=== PATIENT | male | born 1970 | race Caucasian/White ===

== ENCOUNTER 2024-09-25 11:40 | Observation (INO) ==
[2024-09-25] MEDS: NOZIN NASAL SANITIZER TP ONE (08:12)
[2024-09-25] MEDS: NS 1,000 ML IV 1,000 ML ONE (08:14)
[2024-09-25] MEDS: FENTANYL VIAL INJ 100 mcg ONE (09:10)
[2024-09-25] MEDS: VERSED ONE (09:10)
[2024-09-25] MEDS: BETADINE SOLN ONE (09:11)
[2024-09-25] MEDS: REGLAN INJ 10 MG VIAL ONE (09:12)
[2024-09-25] MEDS: DIPRIVAN VIAL 20 ML ONE (09:12)
[2024-09-25] MEDS: PRECEDEX INJ VIAL ONE (09:12)
[2024-09-25] MEDS: ZOFRAN INJ 4 MG VIAL ONE (09:12)
[2024-09-25] MEDS: PEPCID 20 MG VIAL ONE (09:12)
[2024-09-25 09:13] VITALS: BMI 33.0
[2024-09-25] MEDS: XYLOCAINE 2 % (PLAIN) ONE (09:13)
[2024-09-25] MEDS: BRIDION ONE (09:15)
[2024-09-25] MEDS: ZEMURON 100 MG VIAL ONE (09:17)
[2024-09-25] MEDS: NS 1,000 ML IV 800 ML IV PRN (10:05)
[2024-09-25] MEDS: VERSED IVP PRN (10:06)
[2024-09-25] MEDS: ZOFRAN INJ 4 MG VIAL IVP PRN (10:07)
[2024-09-25] MEDS: PEPCID 20 MG VIAL IVP PRN (10:08)
[2024-09-25] MEDS: REGLAN INJ 10 MG VIAL IVP PRN (10:10)
[2024-09-25] MEDS: ANCEF VIAL 1 GRAM ONE (10:14)
[2024-09-25] MEDS: NS 100 ML IV 100 ML ONE (10:14)
[2024-09-25] MEDS: ANCEF VIAL 1 GRAM IV PRN (10:20)
[2024-09-25] MEDS: ROBINUL IVP PRN (10:24)
[2024-09-25] MEDS: ZEMURON 100 MG VIAL IVP PRN (10:29)
[2024-09-25] MEDS: FENTANYL VIAL INJ 100 mcg IVP PRN (10:29)
[2024-09-25] MEDS: MARCAINE 0.25% INJ ONE (10:44)
[2024-09-25] MEDS: NEO-SYNEPHRINE INJ ONE (10:50)
[2024-09-25] MEDS: DIPRIVAN VIAL 200 ML IVP PRN (11:22)
[2024-09-25] MEDS: KETAMINE HCL IV PRN (11:25)
[2024-09-25] MEDS: OFIRMEV IV 1000 MG VIAL 1,000 MG/100 ML VIAL IV ONE (11:34)
[2024-09-25] MEDS: OFIRMEV IV 1000 MG VIAL 1,000 MG/100 ML VIAL IV PRN (11:35)
[2024-09-25] MEDS: DECADRON INJ ONE (11:36)
[2024-09-25] MEDS: DECADRON INJ IVP PRN (11:38)
[~2024-09-25 11:40] MED LIST: BARHEMSYS INJ IVP PRN; BENADRYL INJ 50 MG VIAL IVP PRN; DILAUDID INJ IVP PRN; KETAMINE HCL ONE; REGLAN INJ 10 MG VIAL IVP PRN; ULTANE GAS IN ONE; ZOFRAN INJ 4 MG VIAL IVP PRN
[2024-09-25] MEDS: NEO-SYNEPHRINE INJ IVP PRN (11:51)
[2024-09-25] MEDS: PRECEDEX INJ VIAL IVP PRN (12:09)
[2024-09-25] MEDS: BRIDION IVP PRN (12:11)
[2024-09-25] MEDS ORDERED: PERCOCET TAB 5/325 MG PO PRN (12:23)
[2024-09-25] MEDS ORDERED: ZOFRAN INJ 4 MG VIAL IVP PRN (12:23)
[2024-09-25] MEDS: NS 1,000 ML IV 1,000 ML IV SCH (13:36)
[2024-09-25] MEDS: TYLENOL 325 MG TAB PO PRN (19:49)
[2024-09-25] MEDS: COLACE CAP 100 MG PO SCH (22:11)
[2024-09-25] MEDS: NovoLIN R (or HumuLIN R) SUBCUT PRN (22:46)
[2024-09-26 06:25] LABS: BLOOD UREA NITROGEN 32 mg/dL (7-18); CARBON DIOXIDE 25.5 mmol/L (21-32); CHLORIDE 106 mmol/L (98-107); COR NA(FOR HYPERGLY) 142 mmol/L (136-145); CREATININE 1.25 mg/dL (0.70-1.30); GLUCOSE 190 mg/dL (65-99); POTASSIUM 4.7 mmol/L (3.5-5.1); SODIUM 140 mmol/L (136-145); eGFR NON BLACK RACES > 60 (>60)
[2024-09-26 07:21] VITALS: O2SAT 98
[2024-09-26] MEDS: SNACK - Diabetic Appropriate PO SCH (07:35)
--- NOTE | 2024-09-26 07:45 | NOTE.SOAP ---
Soap Note Note for Day of Date of Exam: 09/26/24 Subjective Data Subjective Data: Patient is POD#1 from achilles tenotomy, midfoot osteotomy, and application of external fixator for charcot of his right lower extremity. He denies any nausea, vomiting, fevers, chills, shortness of breath or chest pain, denies any perfuse sweating. No calf or thigh pain. Objective Data Objective Data: Right Lower Extremity Exam: Fixator is in place to right leg. Pins and wires not loose. Dressing is saturated. Dressing taken down and changed with sterile 4x4s and Juanita. No hematoma noted. No signs or symptoms concerning for PE or DVT. Assessment Assessment: POD#1 from achilles tenotomy, midfoot osteotomy, and application of external fixator for charcot of his right lower extremity Plan Plan: - NWB to RLE - Rx for Pain medication in chart. - Rx for Zofran in chart. - Rx for Bedside commode in chart. - Does not need Lovenox, can restart his Xeralto and Plavix today. - Dressing to stay intact until follow-up appointment. - Crutches to be dispensed at discharged. - Okay for discharge once seen by Primary Care.
[2024-09-26 07:51] VITALS: BP 167/79; PULSE 64; RESP 21; TEMP 98.4
[2024-09-26] MEDS ORDERED: XARELTO PO SCH ×2 (09:30→21:00)
[2024-09-26] MEDS ORDERED: [UNRECOGNIZED DRUG - OTHER] SUBCUT SCH (09:30)
[2024-09-26] MEDS: COZAAR PO SCH (09:59)
[2024-09-26] MEDS: FARXIGA PO SCH (09:59)
[2024-09-26] MEDS: CRESTOR TAB 10 MG PO SCH (09:59)
[2024-09-26] MEDS: NEURONTIN CAP 100 MG PO SCH (10:00)
[2024-09-26] MEDS: TOPROL XL PO SCH (10:00)
[2024-09-26] MEDS: LOVENOX INJ 40 MG SYR SC SCH (10:00)
[2024-09-26] MEDS ORDERED: GLUCOPHAGE PO SCH (17:00)
[2024-09-27] MEDS ORDERED: PLAVIX PO SCH (09:00)
== END 2024-09-26 11:47 | disposition home or self-care (01) ==
LOC: MED/SURG
PROVIDERS: ADMIT Obstetrics & Gynecology Obstetrics; ATTEND Obstetrics & Gynecology Obstetrics
PROC: APEXFIX (2024-09-25 12:00)
DX: E11.65 Type 2 diabetes mellitus with hyperglycemia; G89.18 Other acute postprocedural pain; S93.334A Other dislocation of right foot, initial encounter; M24.571 Contracture, right ankle; M21.6X1 Other acquired deformities of right foot; E11.41 Type 2 diabetes mellitus with diabetic mononeuropathy; M14.671 Charcot's joint, right ankle and foot

== ENCOUNTER 2024-10-25 07:30 | Observation (INO) ==
[2024-10-25] MEDS ORDERED: KETAMINE HCL ONE (09:29)
[2024-10-25] MEDS ORDERED: NEO-SYNEPHRINE INJ ONE (09:29)
[2024-10-25] MEDS ORDERED: SUPRANE IN ONE (09:29)
[2024-10-25] MEDS ORDERED: XYLOCAINE 2 % (PLAIN) ONE (09:29)
[2024-10-25] MEDS: NOZIN NASAL SANITIZER TP ONE (10:37)
[2024-10-25] MEDS: NS 1,000 ML IV 1,000 ML ONE (10:38)
[2024-10-25 11:48] VITALS: BMI 32.8
[2024-10-25] MEDS: PEPCID 20 MG VIAL IVP PRN (12:58)
[2024-10-25] MEDS: REGLAN INJ 10 MG VIAL IVP PRN (12:58)
[2024-10-25] MEDS: ZOFRAN INJ 4 MG VIAL IVP PRN (12:59)
[2024-10-25] MEDS: VERSED IVP PRN (12:59)
[2024-10-25] MEDS: NS IV PRN (13:00)
[2024-10-25] MEDS: NS 100 ML IV 100 ML ONE (13:03)
[2024-10-25] MEDS: ANCEF VIAL 1 GRAM ONE (13:03)
[2024-10-25] MEDS: DIPRIVAN VIAL 20 ML ONE (13:21)
[2024-10-25] MEDS: VERSED ONE (13:21)
[2024-10-25] MEDS: ZEMURON 100 MG VIAL ONE (13:21)
[2024-10-25] MEDS: ZOFRAN INJ 4 MG VIAL ONE (13:21)
[2024-10-25] MEDS: FENTANYL VIAL INJ 100 mcg ONE (13:21)
[2024-10-25] MEDS: BRIDION ONE (13:21)
[2024-10-25] MEDS: REGLAN INJ 10 MG VIAL ONE (13:21)
[2024-10-25] MEDS: PEPCID 20 MG VIAL ONE (13:21)
[2024-10-25] MEDS: ANCEF VIAL 1 GRAM IV PRN (13:22)
[2024-10-25] MEDS ORDERED: ZOFRAN INJ 4 MG VIAL IVP PRN ×2 (13:25→14:36)
[2024-10-25] MEDS: ZEMURON 100 MG VIAL IVP PRN (13:27)
[2024-10-25] MEDS: XYLOCAINE 2 % (PLAIN) INJ PRN (13:27)
[2024-10-25] MEDS: KETAMINE HCL IV PRN (13:27)
[2024-10-25] MEDS: FENTANYL VIAL INJ 100 mcg IVP PRN (13:27)
[2024-10-25] MEDS: BETADINE SOLN ONE (13:30)
[2024-10-25] MEDS: MARCAINE 0.25% INJ ONE (13:33)
[2024-10-25] MEDS: TORADOL 30 MG VIAL ONE (13:42)
[2024-10-25] MEDS: NS 1,000 ML IV 1,000 ML IV SCH (14:00)
[2024-10-25] MEDS ORDERED: NS 1,000 ML IV 1,000 ML ONE (14:20)
[2024-10-25] MEDS ORDERED: OFIRMEV IV 1000 MG VIAL 1,000 MG/100 ML VIAL IV ONE (14:21)
[2024-10-25] MEDS: OFIRMEV IV 1000 MG VIAL 1,000 MG/100 ML VIAL IV PRN (14:25)
[2024-10-25] MEDS: TORADOL 30 MG VIAL IVP PRN (14:34)
[2024-10-25] MEDS ORDERED: DILAUDID INJ IVP PRN (14:36)
[2024-10-25] MEDS ORDERED: BARHEMSYS INJ IVP PRN (14:36)
[2024-10-25] MEDS ORDERED: BENADRYL INJ 50 MG VIAL IVP PRN (14:36)
[2024-10-25] MEDS ORDERED: DILAUDID INJ ONE (14:53)
[2024-10-25] MEDS: DILAUDID INJ IVP PRN (14:55)
[2024-10-25] MEDS: DIPRIVAN VIAL 180 ML IVP PRN (14:57)
[2024-10-25] MEDS: NEO-SYNEPHRINE INJ IVP PRN (15:01)
[2024-10-25] MEDS ORDERED: HYDROGEN PEROXIDE 3% ONE (15:26)
[2024-10-25] MEDS: BRIDION IVP PRN (15:44)
[2024-10-25] MEDS: COLACE CAP 100 MG PO SCH (20:57)
[2024-10-25] MEDS: NovoLIN R (or HumuLIN R) SUBCUT PRN ×2 (21:32)
[2024-10-25] MEDS ORDERED: TYLENOL 325 MG TAB PO PRN (22:00)
[2024-10-25] MEDS: LOPRESSOR TAB 50 MG PO SCH (22:06)
[2024-10-25] MEDS: COZAAR PO SCH (22:06)
[2024-10-25] MEDS: TYLENOL 325 MG TAB PO PRN (22:06)
[2024-10-26] MEDS: SNACK - Diabetic Appropriate PO SCH (03:39)
[2024-10-26 04:23] VITALS: RESP 18
[2024-10-26 07:16] LABS: CARBON DIOXIDE 28.7 mmol/L (21-32); CREATININE 1.74 mg/dL (0.70-1.30); POTASSIUM 4.2 mmol/L (3.5-5.1)
[2024-10-26 08:18] VITALS: BP 122/73; TEMP 98.4; O2SAT 99
--- NOTE | 2024-10-26 09:15 | NOTE.SOAP ---
Soap Note Note for Day of Date of Exam: 10/26/24 Subjective Data Subjective Data: POD#1 medial column fusion, multiple midfoot fusion, STJ and CCJ fusion with hammertoe repair digits 3-5. No complaints. Denies N/V/F/C/SoB. No chest pain. No diaphoresis. No calf pain or thigh pain. Objective Data Objective Data: Right Lower Extremity Exam: Dressing taken down. Surgical incisions healing well. No hematoma noted underneath the incisions. Redressed with sterile 4x4s, ABD, Webroll, back into splint and FIDELIA. No signs or symptoms concerning for DVT or PE. Assessment Assessment: POD#1 medial column fusion, multiple midfoot fusion, STJ and CCJ fusion with hammertoe repair digits 3-5, right Plan Plan: - NWB to RLE - Rx in chart for pain medication and zofran. - Can restart Xeralto and Plavix today. - Okay for discharge.
[2024-10-26] MEDS: XARELTO PO SCH (09:22)
[2024-10-26] MEDS: PLAVIX PO SCH (09:22)
[2024-10-26] MEDS: PriLOSEC PO SCH (09:22)
[2024-10-26] MEDS: NEURONTIN CAP 100 MG PO SCH (09:23)
[2024-10-26] MEDS: HYDROCHLOROTHIAZIDE 25 MG TAB PO SCH (09:23)
[2024-10-26 09:38] VITALS: PULSE 74
[2024-10-26] MEDS: PERCOCET TAB 5/325 MG PO PRN (10:33)
[2024-10-26] MEDS ORDERED: CRESTOR TAB 10 MG PO SCH (21:00)
== END 2024-10-26 10:45 | disposition home or self-care (01) ==
LOC: OBS → MED/SURG 16:26
PROVIDERS: ADMIT Obstetrics & Gynecology Obstetrics; ATTEND Obstetrics & Gynecology Obstetrics
DX: G89.18 Other acute postprocedural pain; M21.6X1 Other acquired deformities of right foot; M14.671 Charcot's joint, right ankle and foot; E11.42 Type 2 diabetes mellitus with diabetic polyneuropathy; I10 Essential (primary) hypertension; M19.071 Primary osteoarthritis, right ankle and foot; M20.41 Other hammer toe(s) (acquired), right foot

== ENCOUNTER 2024-11-12 17:50 | Inpatient (IN) ==
[2024-11-12 18:07] VITALS: BMI 32.7
[2024-11-12 20:06] LABS: BASOPHILS # (AUTO) 0.1 X10^3/uL (0.0-0.1); BASOPHILS % (AUTO) 0.5 % (0.2-1.0); EOSINOPHILS # (AUTO) 0.3 x10^3/uL (0.0-0.2); EOSINOPHILS % (AUTO) 2.1 % (0.9-2.9); HEMATOCRIT 39.1 % (42.0-54.0); HEMOGLOBIN 13.3 g/dL (13.5-18.0); LYMPHOCYTES # (AUTO) 1.4 X10^3/uL (1.3-2.9); LYMPHOCYTES % (AUTO) 9.2 % (21.0-51.0); MEAN CORPUSCULAR HEMOGLOBIN 31.3 pg (27.0-34.0); MEAN CORPUSCULAR HGB CONC 34.1 g/dL (33.0-35.0); MEAN CORPUSCULAR VOLUME 91.8 fL (80.0-100.0); MEAN PLATELET VOLUME 6.7 fL (7.4-11.0); MONOCYTES % (AUTO) 6.3 % (0.0-13.0); NEUTROPHILS # (AUTO) 12.9 x10^3/uL (2.2-4.8); NEUTROPHILS % (AUTO) 81.9 % (42.0-75.0); PLATELET COUNT 659 X10^3/uL (150.0-450.0); RED BLOOD COUNT 4.25 X10^6/uL (4.7-6.0); RED CELL DISTRIBUTION WIDTH 13.2 % (11.6-16.5); WHITE BLOOD COUNT 15.8 X10^3/uL (3.6-10.0)
[2024-11-12 20:12] LABS: CALCIUM 9.5 mg/dL (8.5-10.1); CARBON DIOXIDE 30.8 mmol/L (21-32); CREATININE 2.06 mg/dL (0.70-1.30); POTASSIUM 4.9 mmol/L (3.5-5.1)
[2024-11-12] MEDS ORDERED: PRECEDEX INJ VIAL ONE (20:30)
[2024-11-12] MEDS ORDERED: XYLOCAINE 2 % (PLAIN) ONE (20:30)
[2024-11-12] MEDS ORDERED: KETAMINE HCL ONE (20:30)
--- NOTE | 2024-11-12 20:36 | DR.EXTPAIN ---
HPI Time seen Time Seen by Provider: 11/12/24 19:18 PCP Primary Care Physician: Fordam Complaint/Symptoms Chief Complaint Doctor Comments: 54 yo M, hx Charcot Foot, had surgery 3 wk ago to repair foot, c/o increasing pain/redness/swelling to surgical area, worst on posterior foot / heel of foot. Denies fever. Pt sent here by Dr Stevens for admission and to prep for surgery in the am. Chief Complaint:: Infection of surgical site, was sent here by Dr. Stevens to have debridement of wound site. Self Treatment fo Chief Complaint: Dr. Da Silva with on monday then Dr. Hilda da silva today Source History Provided: Patient and Significant Other Mode of arrival Mode of Arrival: Wheelchair Timing Onset of Chief Complaint: 11/08/24 PMH PMH Past Medical History: Yes Past Medical History: Diabetes, GERD and Hypertension Past Medical History Comment: DVT, PTSD Past Surgical History: Yes Surgical History: Ortho Surgery Past Surgical History Comment: Tripple bipass, eye surgery, laser eye surgery Family History History of Family Medical Conditions: Yes Family Medical History: Diabetes Mellitus, Cancer, Heart Failure and Hypertension Social History Does patient currently use any type of tobacco product: No Have you used tobacco products in the last 12 months: No Does any household member use tobacco: No Do you use any recreational Drugs:: No Lives With: Spouse Lives Where: Home Infectious screening In the last 2 months have you had wt loss of >10#?: NO Have you had fever, night sweats or hemotysis?: No Have you traveled outside the country in the last 6 months?: No Isolation: Standard ROS Review of Systems Musculoskeletal: Other (R foot infection/pain/redness/swelling) All Other Systems: Reviewed and Negative PE Vital Signs Vitals: Vital Signs Temperature 98.0 F Pulse Rate 87 Respiratory Rate 20 Blood Pressure 93/56 O2 Sat by Pulse Oximetry 93 General Limitations: No Limitations General Appearance: Alert and In No Apparent Distress Head Head Exam: Normal Inspection Eyes Eye exam: Normal Appearance ENT ENT Exam: Normal Exam Neck Neck Exam: Normal Inspection Chest Chest Inspection: Normal Inspection Respiratory Respiratory Exam: Normal Lung Sounds Bilat Cardiovascular Cardiovascular Exam: Regular Rate and Normal Rhythm Lower Extremities Foot/Toe Exam: Other (erythema & swelling of posterior foot, open wound overlying posterior portion of calcaneous. Wound appears infected with assoc cellulitis surrounding wound site.) Back Back Exam: Normal Inspection Neurological Neurological Exam: Alert, Oriented X3 and CN II-XII Intact Psychiatric Psychiatric Exam: Normal Affect and Normal Mood Skin Skin Exam: Warm, Dry, Intact and Normal Color ROR Labs Reviewed 11/12/24 19:11/12/24 19: Laboratory: WBC 15.8 X10^3/uL (3.6-10.0) H 11/12/24 19: RBC 4.25 X10^6/uL (4.7-6.0) L 11/12/24 19: Hgb 13.3 g/dL (13.5-18.0) L 11/12/24: Hct 39.1 % (42.0-54.0) L 11/12/24: MCV 91.8 fL (80.0-100.0) 11/12/24: MCH 31.3 pg (27.0-34.0) 11/12/24: MCHC 34.1 g/dL (33.0-35.0) 11/12/24: RDW 13.2 % (11.6-16.5) 11/12/24: Plt Count 659 X10^3/uL (150.0-450.0) H 11/12/24: MPV 6.7 fL (7.4-11.0) L 11/12/24: Neut % (Auto) 81.9 % (42.0-75.0) H 11/12/24: Lymph % (Auto) 9.2 % (21.0-51.0) L 11/12/24: [place] % (Auto) 6.3 % (0.0-13.0) 11/12/24: Eos % (Auto) 2.1 % (0.9-2.9) 11/12/24: Baso % (Auto) 0.5 % (0.2-1.0) 11/12/24: Neut # (Auto) 12.9 x10^3/uL (2.2-4.8) H 11/12/24: Lymph # (Auto) 1.4 X10^3/uL (1.3-2.9) 11/12/24 19:31 [place] # (Auto) 1.0 x10^3/uL (0.3-0.8) H 11/12/24 19:31 Eos # (Auto) 0.3 x10^3/uL (0.0-0.2) H 11/12/24 19:31 Baso # (Auto) 0.1 X10^3/uL (0.0-0.1) 11/12/24 19:31 Absolute Nucleated RBC 0.1 /100WBC 11/12/24 19:31 Sodium 134 mmol/L (136-145) L 11/12/24 19:31 Corrected Sodium 136 mmol/L (136-145) 11/12/24 19:31 Potassium 4.9 mmol/L (3.5-5.1) 11/12/24 19:31 Chloride 98 mmol/L (98-107) 11/12/24 19:31 Carbon Dioxide 30.8 mmol/L (21-32) 11/12/24 19:31 BUN 27 mg/dL (7-18) H 11/12/24 19:31 Creatinine 2.06 mg/dL (0.70-1.30) H 11/12/24 19:31 Est GFR (MDRD) Af Amer 43 (>60) L 11/12/24 19:31 Est GFR (MDRD) Non-Af 36 (>60) L 11/12/24 19:31 Glucose 179 mg/dL (65-99) H 11/12/24 19:31 Calcium 9.5 mg/dL (8.5-10.1) 11/12/24 19:31 Opioid Opioid Risk Tool Age (John box if 16-45): No History of Preadolescent Sexual Abuse: No Total: 0 Total Score Risk Category: Low Risk Copyright: Nahum HUGHES predicting aberrant behaviors Discharge Plan Diagnosis Discharge Problem: Infection of right foot Discharge Plan Patient Disposition: 09 ADMITTED INPATIENT Condition: Stable Prescriptions: No Action Novolin R Regular U100 Insulin 100 unit/mL Solution hydrochlorothiazide 25 mg tablet 25 mg PO QDAY omeprazole 20 mg Capsule,Delayed Release(Dr/Ec) 20 mg PO DAILY losartan 50 mg tablet 50 mg PO BID metoprolol succinate 50 mg tablet extended release 24 hr 50 mg PO BID clopidogrel 75 mg tablet 75 mg PO QDAY clopidogrel 75 mg tablet 75 mg PO DAILY metformin 1,000 mg tablet 1,000 mg PO BID gabapentin 100 mg capsule 100 mg PO BID rosuvastatin 20 mg tablet 10 mg PO DAILY Jardiance 10 mg tablet 10 mg PO QDAY rivaroxaban [Xarelto] 2.5 mg tablet 2.5 mg PO BID Patient Comments: [NO ORIGINAL SIG] (DME) Dexcom G7 Sensor Device MISCELLANEOUS Q10D (DME) Omnipod 5 G6-G7 Pods (Gen 5) Cartridge SUBCUT Q3D clopidogrel 75 mg tablet 75 mg PO QDAY ondansetron 8 mg Tablet,Disintegrating 8 mg PO Q8H Qty: 21 0RF oxycodone-acetaminophen [Percocet] 5-325 mg Tablet 1 tab PO Q4-6H MDD 5 PRNQty: 36 0RF Health Concerns: Post Hospitalization: new medications and changes needed to prevent readmission or further decline. Pt educated and given instructions on all concerns. Plan of Treatment: Continue with present treatment and follow up plan. Pt is to keep follow up appointment as instructed and take medications as ordered. Orders to Discharge Patient Discharge Orders: Transfer (Routine); Ordered 11/12/24 Ordered By: Maynor Yang Follow ups/Referrals Follow ups/Referrals: LANCE VILA [Primary Care Provider] - 3 days Instructions Stand Alone Forms: Find Help Web Site, Post Hospital Follow Up Care ADDITIONAL NOTES Additional Notes Additional Notes: Called Dr Stevens, have not heard back from him, left him a voice mail stating we are planning to admit his patient in preparation for surgery. Dr Moe contacted, accepts pt for admission at this time.
[2024-11-12] MEDS: NEURONTIN CAP 100 MG PO SCH (23:12)
[2024-11-12] MEDS: NS 1,000 ML IV 1,000 ML IV SCH (23:12)
[2024-11-12] MEDS: VANCOMYCIN IV *PREMIX 2 G/400 ML BAG 2 G/400 ML PIGGYBACK IV ONE (23:13)
[2024-11-12] MEDS: COZAAR PO SCH (23:13)
[2024-11-12] MEDS: TOPROL XL PO SCH (23:13)
[2024-11-13] MEDS: NovoLIN R (or HumuLIN R) SC SCH (01:10)
[2024-11-13] MEDS: NS 250 ML IV 25 ML IV PRN (02:23)
[2024-11-13] MEDS: HIBICLENS WASH EXT ONE (02:23)
[2024-11-13] MEDS: ZOSYN VIAL 3.375 GRAMS 3.375 G in NS 100 ML IV 100 ML IV SCH (02:23)
[2024-11-13 05:21] LABS: BASOPHILS # (AUTO) 0.1 X10^3/uL (0.0-0.1); BASOPHILS % (AUTO) 0.6 % (0.2-1.0); EOSINOPHILS # (AUTO) 0.4 x10^3/uL (0.0-0.2); EOSINOPHILS % (AUTO) 3.2 % (0.9-2.9); HEMATOCRIT 36.1 % (42.0-54.0); HEMOGLOBIN 12.5 g/dL (13.5-18.0); LYMPHOCYTES % (AUTO) 16.2 % (21.0-51.0); MEAN CORPUSCULAR HEMOGLOBIN 31.4 pg (27.0-34.0); MEAN CORPUSCULAR HGB CONC 34.5 g/dL (33.0-35.0); MEAN PLATELET VOLUME 6.7 fL (7.4-11.0); MONOCYTES % (AUTO) 8.4 % (0.0-13.0); NEUTROPHILS # (AUTO) 8.8 x10^3/uL (2.2-4.8); NEUTROPHILS % (AUTO) 71.6 % (42.0-75.0); PLATELET COUNT 621 X10^3/uL (150.0-450.0); RED BLOOD COUNT 3.97 X10^6/uL (4.7-6.0); RED CELL DISTRIBUTION WIDTH 13.6 % (11.6-16.5); WHITE BLOOD COUNT 12.3 X10^3/uL (3.6-10.0)
[2024-11-13 05:24] LABS: INR 1.16 (0.8-1.3)
[2024-11-13 05:26] LABS: ERYTHROCYTE SEDIMENTATION RATE 74 MM/HOUR (0-15)
[2024-11-13 05:32] LABS: ALBUMIN 2.3 g/dL (3.4-5.0); CALCIUM 9.3 mg/dL (8.5-10.1); CARBON DIOXIDE 28.5 mmol/L (21-32); COR CA(FOR HYPOALB) 10.7 mg/dL (8.5-10.1); CREATININE 2.06 mg/dL (0.70-1.30); MAGNESIUM 2.1 mg/dL (2.0-2.9); POTASSIUM 4.2 mmol/L (3.5-5.1)
--- NOTE | 2024-11-13 06:18 | VAS ---
EXAM: Right lower extremity arterial Doppler evaluation HISTORY: Right foot infection, recent right foot surgery TECHNIQUE: Multiple grayscale sonographic images were obtained. Color duplex Doppler evaluation was performed . COMPARISON: 08/11/2019 report only. Images no longer available FINDINGS: Flow is identified from the common femoral artery through the dorsalis pedis artery. Waveforms in the common femoral artery were triphasic. Flow from the proximal superficial femoral artery through the dorsalis pedis artery are monophasic. There is a velocity spike between the mid superficial femo ral artery and distal superficial femoral artery suggesting the possibility of a significant stenosis . There is a velocity spike between the proximal posterior tibial artery and mid posterior tibial ar nathaly suggesting the possibility of a stenosis. Findings suggest the possibility of significant ather osclerotic obstructive disease on the basis of the monophasic Doppler waveforms in the velocity spike s described above. CTA should be considered for further evaluation. IMPRESSION: Monophasic waveforms from the superficial femoral artery through the dorsalis pedis artery and veloc ity spikes between the superficial femoral artery mid and superficial femoral artery distally and bet ween the posterior tibial artery proximally in the posterior tibial artery mid suggests the possibili ty of significant atherosclerotic obstructive disease. CTA would be of further diagnostic value. THIS IS AN ELECTRONICALLY VERIFIED FINAL REPORT 11/13/2024 6:14 AM - Electronically signed by Kamar Hendricks MD
--- NOTE | 2024-11-13 06:25 | CT ---
EXAM:LOWER EXT WITH CONHISTORY:Rt. foot post-op infection;COMPARISON:NoneTECHNIQUE:CT of the right foot obtained with IV contrast. dose reduction techniques including Automated Exposure Control (AEC) and adjustment of mA and kV were utilized.FINDINGS:No acute fracture or dislocation. Prior 2nd digit amputation. Hindfoot and midfoot arthrodesis changes.Edema in the foot. Extensive vascular calcifications. Edema in the foot.IMPRESSION:Edema in the foot without obvious drainable fluid collection or abscess.THIS IS AN ELECTRONICALLY VERIFIED FINAL REPORT11/13/2024 6:22 AM - Electronically signed by Kamar Hendricks MD
[2024-11-13] MEDS: OMNIPAQUE 350 mg/mL 100 mL BTL 100 ML ONE ×2 (06:58→17:24)
[2024-11-13] MEDS: VANCOMYCIN IV *PREMIX 1 G/200 ML BAG 1 G/200 ML PIGGYBACK IV SCH (07:01)
[2024-11-13] MEDS: PERCOCET TAB 5/325 MG PO PRN (07:35)
--- NOTE | 2024-11-13 07:37 | DR.CONSULT ---
CONSULT Consultation for Day of: Date: 11/13/24 Chief Complaint Chief Complaint: Right foot infection Allergies Allergies Allergy/AdvReac Type Severity Reaction Status Date / Time No Known Allergies Allergy Verified 09/25/24 08:30 History of Present Illness History of Present Illness: Mr. Berrios is well known to Podiatry. He recently underwent a charcot recon by Dr. Stevens. He was doing well and developed maceration in the posterior heel. We then cultured it. Placed him on antibiotics. It grew serratia. He then presented for his second POV where the maceration was worse. An open wound was now present to posterior right heel. Fibrotic base was present. More drainage. Increased erythema. Patient had more pain as well. This prompted us to have him be admitted to the hospital and start IV antibiotics with eventual plan for debridement and hardware removal with placement of antibiotic sparkler and cultures. His labs show admission wbc of 15 which has dropped to 12 with IV zosyn and vanc. His pain is better this morning. ESR and CRP are elevated. Past Medical History Past Medical History: Diabetes, GERD and Hypertension Past Surgical History Surgical History: CABG/Valve Surgery Family History Family Medical History: Diabetes Mellitus and Heart Failure Social History Does patient currently use any type of tobacco product: No Have you used tobacco products in the last 12 months: No Does any household member use tobacco: No Alcohol Use: None Medications Home Medications: No Known Allergies Allergy (Verified 09/25/24 08:30) Review of Systems Constitutional: See HPI Skin: Wound Physical Exam Vital Signs: Vital Signs Temperature 98.1 F Pulse Rate [Left Radial] 74 Pulse Rate [Left Radial] 69 Pulse Rate [Left Radial] 77 Pulse Rate [Left Radial] 73 Pulse Rate [Left Radial] 73 Pulse Rate [Left Radial] 75 Pulse Rate [Left Radial] 84 Respiratory Rate 11 Respiratory Rate 19 Respiratory Rate 11 Respiratory Rate 9 Respiratory Rate 10 Respiratory Rate 8 Respiratory Rate 24 Blood Pressure [Left Arm] 131/96 Blood Pressure [Left Arm] 117/58 Blood Pressure [Left Arm] 108/60 Blood Pressure [Left Arm] 117/61 Blood Pressure [Left Arm] 116/65 Blood Pressure [Left Arm] 122/60 Blood Pressure [Left Arm] 113/57 O2 Sat by Pulse Oximetry 98 O2 Sat by Pulse Oximetry 95 O2 Sat by Pulse Oximetry 97 O2 Sat by Pulse Oximetry 97 O2 Sat by Pulse Oximetry 95 O2 Sat by Pulse Oximetry 96 O2 Sat by Pulse Oximetry 96 Skin: Wound (Right foot: Wound to posterior heel measuring 5 cm x 2 cm x with fibrotic base and surrounding erythema improved from yesterdays clinic visit. Still warrants washout in OR. Surrounding erythema. ) Plan (1) Infection of right foot: Status: Acute Plan: 54 year old M who is status post Charcot recon right foot with infection and open wound to posterior heel, right - Labs reviewed. WBC trending down. ESR and CRP are elevated. - Started on IV vanc and zosyn. - Reviewed his arterial US which shows monophasic waveforms from sfa to dp and spikes from mid and distal sfa as well as from pt and ta. We will consult Dr. Pickering who will evaluate. - Reviewed his CT no significant changes for osteomyelitis noted. Major charcot changes with previous reconstruction. Posterior screw does appear to be in area of wound. - Changed dressing this morning. - Discussed with him this morning that he will require washout of the right foot with hardware removal of the right foot and placement of antibiotic sparkler. He was udnerstanding of this. - We will also obtain cultures during intra-operative. - He is currently NPO.
[2024-11-13] MEDS ORDERED: GLUCOPHAGE ONE (08:14)
[2024-11-13] MEDS: HYDROCHLOROTHIAZIDE 25 MG TAB PO SCH (09:21)
[2024-11-13] MEDS: PriLOSEC PO SCH (09:21)
[2024-11-13] MEDS: FARXIGA PO SCH (09:21)
[2024-11-13] MEDS: CRESTOR TAB 10 MG PO SCH ×2 (09:25→20:15)
[2024-11-13] MEDS: GLUCOPHAGE PO SCH (12:30)
[2024-11-13] MEDS: PLAVIX PO SCH (12:30)
[2024-11-13] MEDS: NS 1,000 ML IV 1,000 ML ONE (15:59)
[2024-11-13] MEDS: NS 1,000 ML IV 500 ML IV PRN (16:15)
[2024-11-13] MEDS: VERSED IVP PRN (16:38)
[2024-11-13] MEDS: VERSED ONE (16:39)
[2024-11-13] MEDS: DIPRIVAN VIAL 20 ML ONE (16:39)
[2024-11-13] MEDS: FENTANYL VIAL INJ 100 mcg ONE (16:39)
[2024-11-13] MEDS: OFIRMEV IV 1000 MG VIAL 1,000 MG/100 ML VIAL IV ONE (16:39)
[2024-11-13] MEDS: REGLAN INJ 10 MG VIAL ONE (16:39)
[2024-11-13] MEDS: PEPCID 20 MG VIAL ONE (16:39)
[2024-11-13] MEDS: TOBRAMYCIN SULFATE ONE (16:39)
[2024-11-13] MEDS: ZOFRAN INJ 4 MG VIAL ONE (16:39)
[2024-11-13] MEDS: ZOFRAN INJ 4 MG VIAL IVP PRN (16:40)
[2024-11-13] MEDS: PEPCID 20 MG VIAL IVP PRN (16:41)
[2024-11-13] MEDS: REGLAN INJ 10 MG VIAL IVP PRN (16:43)
[2024-11-13] MEDS ORDERED: XYLOCAINE 2 % (PLAIN) PRN (16:45)
[2024-11-13] MEDS: BETADINE SOLN ONE (16:45)
[2024-11-13] MEDS ORDERED: KETAMINE HCL PRN (16:46)
[2024-11-13] MEDS: PRECEDEX INJ VIAL IVP PRN (16:46)
[2024-11-13] MEDS: DIPRIVAN VIAL 100 ML IVP PRN (16:46)
[2024-11-13] MEDS: MARCAINE 0.25% INJ ONE (16:50)
[2024-11-13] MEDS: VANCOMYCIN HCL ONE (16:50)
[2024-11-13] MEDS: FENTANYL VIAL INJ 100 mcg IVP PRN (16:50)
[2024-11-13] MEDS: DECADRON INJ ONE (16:53)
[2024-11-13] MEDS: DECADRON INJ IVP PRN (17:01)
[2024-11-13] MEDS: OFIRMEV IV 1000 MG VIAL 1,000 MG/100 ML VIAL IV PRN (17:05)
[2024-11-13] MEDS: EPHEDRINE SULFATE INJ ONE (17:12)
[2024-11-13] MEDS: EPHEDRINE SULFATE INJ IVP PRN (17:15)
[2024-11-13] MEDS: OMNIPAQUE 350 mg/mL 50 mL BTL 50 ML ONE (17:25)
[2024-11-13] MEDS: SNACK - Diabetic Appropriate PO SCH (20:14)
[2024-11-13] MEDS: VANCOMYCIN IV *PREMIX 1.5 G/300 ML BAG 1.5 G/300 ML PIGGYBACK IV SCH (20:14)
[2024-11-13] MEDS: GLUCOPHAGE ONE (20:16)
[2024-11-13] MEDS: NovoLIN R (or HumuLIN R) SC PRN (20:17)
[2024-11-14] MEDS ORDERED: VANCOMYCIN IV *PREMIX 2 G/400 ML BAG 2 G/400 ML PIGGYBACK IV SCH
[2024-11-14 05:39] LABS: BASOPHILS # (AUTO) 0.1 X10^3/uL (0.0-0.1); BASOPHILS % (AUTO) 0.5 % (0.2-1.0); EOSINOPHILS % (AUTO) 0.1 % (0.9-2.9); HEMATOCRIT 35.6 % (42.0-54.0); HEMOGLOBIN 12.4 g/dL (13.5-18.0); LYMPHOCYTES # (AUTO) 0.6 X10^3/uL (1.3-2.9); LYMPHOCYTES % (AUTO) 4.7 % (21.0-51.0); MEAN CORPUSCULAR HEMOGLOBIN 31.5 pg (27.0-34.0); MEAN CORPUSCULAR HGB CONC 34.6 g/dL (33.0-35.0); MEAN CORPUSCULAR VOLUME 90.9 fL (80.0-100.0); MEAN PLATELET VOLUME 6.5 fL (7.4-11.0); MONOCYTES # (AUTO) 0.5 x10^3/uL (0.3-0.8); MONOCYTES % (AUTO) 4.1 % (0.0-13.0); NEUTROPHILS # (AUTO) 11.6 x10^3/uL (2.2-4.8); NEUTROPHILS % (AUTO) 90.6 % (42.0-75.0); PLATELET COUNT 584 X10^3/uL (150.0-450.0); RED BLOOD COUNT 3.92 X10^6/uL (4.7-6.0); RED CELL DISTRIBUTION WIDTH 13.5 % (11.6-16.5); WHITE BLOOD COUNT 12.8 X10^3/uL (3.6-10.0)
[2024-11-14 05:52] LABS: ALBUMIN 2.3 g/dL (3.4-5.0); CALCIUM 9.4 mg/dL (8.5-10.1); CARBON DIOXIDE 22.6 mmol/L (21-32); COR CA(FOR HYPOALB) 10.8 mg/dL (8.5-10.1); CREATININE 1.71 mg/dL (0.70-1.30); TOTAL PROTEIN 7.1 g/dL (6.4-8.2)
[2024-11-14 07:56] LABS: BAND NEUTROPHILS % 2 % (0-10); PLATELET MORPHOLOGY COMMENT NORMAL (NORMAL)
--- NOTE | 2024-11-14 08:17 | CT ---
EXAM:CTA AORTA WITH RUNOFFHISTORY:atherosclerotic obstructive disease;COMPARISON:Arterial Doppler U/S 11/12/2024TECHNIQUE:Multiple CT axial images of the abdomen pelvis and lower extremity runoff were obtained before and after using IV contrast. 3D reconstructions utilizing axial MIPS imaging was performed and reviewed. Dose reduction techniques including Automated Exposure Control (AEC) and adjustment of mA and kV were utilized.Stenoses are measured using NASCET criteria. Normal is no stenosis. Mild is less than 50% stenosis. Moderate is 50-69% stenosis. Severe is 70% to 99% stenosis. Total occlusion is no detectable patent lumen.FINDINGS:Without contrast: There are calcifications in the arteries consistent with atherosclerosis. Calcified granuloma in the right lung base associated with calcified granulomata in the spleen. Calcified gallstones are present. Median sternotomy fixation hardware is present.With contrast: Aorta has a normal caliber with no aneurysm, dissection, or stenosis. All 3 mesenteric vessels are patent. There is a single patent artery to the left kidney and 2 patent arteries to the right kidney. Common iliac and external iliac arteries are widely patent without significant stenosis. Both internal iliac arteries are patent.Right lower extremity: Multifocal moderate stenoses are noted in the femoropopliteal artery. Severe sub trifurcation disease is present. Anterior tibial artery is occluded in the proximal calf. Probable occluded posterior tibial artery in the distal calf. Peroneal artery probably patent with multifocal severe disease.Left lower extremity: Mild diffuse femoropopliteal artery disease is present with at least 1 moderate stenosis in the proximal popliteal artery. Similar to the right side, there is severe sub trifurcation disease. Anterior tibial artery is occluded high in the calf. Posterior tibial artery probably occluded in proximal calf. I believe the peroneal artery is patent but has severe disease and is occluded distally.Body: Liver, spleen, adrenal glands, and pancreas are unremarkable. The gallbladder has no edema around it. Renal enhancement is uniform and symmetric with no solid mass. There is no hydronephrosis or significant perirenal edema. The bowel is not dilated. There is no wall thickening in the bowel or edema around the bowel.IMPRESSION:1. Moderate multifocal stenoses right femoropopliteal artery2. Moderate focal stenosis proximal left popliteal artery3. Severe bilateral sub trifurcation disease4. Single-vessel peroneal artery runoff to the right foot5. Segmental occlusion of all 3 trifurcation runoff vessels to the left foot6. CholelithiasisTHIS IS AN ELECTRONICALLY VERIFIED FINAL REPORT11/14/2024 8:13 AM - Electronically signed by Elier Moseley MD
--- NOTE | 2024-11-14 08:29 | NOTE.SOAP ---
Soap Note Note for Day of Date of Exam: 11/14/24 Subjective Data Subjective Data: Patient is POD#1 HWR, InD, with placement of antibiotic elluding device, right foot. He is doing well this morning. Denies N/V/F/C/SoB. No diaphoresis. Objective Data Objective Data: Right Lower Extremit Exam: Dressing taken down today. Wound examined. No gross purulence. Antibiotic elluding devices are in place. Wound looks much better today. Ecchymosis spot on the dorsal foot is stable. Redressed with 4x4s, ABD, Webroll, Splint. Assessment Assessment: POD#1 HWR, InD, with placement of antibiotic elluding device, right foot Plan Plan: - Doing well this morning. - WBC elevated slightly. Normal with post-op state. - On Vanc/Zosyn. - Hold Metformin for 24 more hours. - NWB to RLE. - Keep dressing intact. - Will keep him for 24 more hours to await preliminary cultures and then possible discharge tomorrow.
[2024-11-14] MEDS: COLACE CAP 100 MG PO PRN (08:53)
[2024-11-14] MEDS: CATAPRES TAB 0.1 MG PO ONE (17:53)
--- NOTE | 2024-11-14 17:56 | EKG ---
Test Reason : per protocol for HTN protocol Blood Pressure : */* mmHG Vent. Rate : 69 BPM Atrial Rate : 69 BPM P-R Int : 146 ms QRS Dur : 86 ms QT Int : 416 ms P-R-T Axes : 80 2 26 degrees QTc Int : 445 ms Normal sinus rhythm Nonspecific T wave abnormality When compared with ECG of 23-SEP-2024 12:29, Nonspecific T wave abnormality is new Confirmed by Chad Hook MD ([id number]) on 11/14/2024 7:37:34 PM Referred By: Confirmed By: Chad Hook MD
[2024-11-14] MEDS: CATAPRES TAB 0.1 MG ONE (18:18)
[2024-11-15 05:24] LABS: BASOPHILS # (AUTO) 0.1 X10^3/uL (0.0-0.1); BASOPHILS % (AUTO) 0.8 % (0.2-1.0); EOSINOPHILS # (AUTO) 0.2 x10^3/uL (0.0-0.2); EOSINOPHILS % (AUTO) 2.3 % (0.9-2.9); HEMATOCRIT 34.8 % (42.0-54.0); HEMOGLOBIN 11.9 g/dL (13.5-18.0); LYMPHOCYTES # (AUTO) 1.6 X10^3/uL (1.3-2.9); MEAN CORPUSCULAR HEMOGLOBIN 31.2 pg (27.0-34.0); MEAN CORPUSCULAR HGB CONC 34.2 g/dL (33.0-35.0); MEAN CORPUSCULAR VOLUME 91.1 fL (80.0-100.0); MEAN PLATELET VOLUME 6.8 fL (7.4-11.0); MONOCYTES # (AUTO) 0.8 x10^3/uL (0.3-0.8); MONOCYTES % (AUTO) 8.1 % (0.0-13.0); NEUTROPHILS # (AUTO) 7.3 x10^3/uL (2.2-4.8); NEUTROPHILS % (AUTO) 72.8 % (42.0-75.0); PLATELET COUNT 558 X10^3/uL (150.0-450.0); RED BLOOD COUNT 3.82 X10^6/uL (4.7-6.0); RED CELL DISTRIBUTION WIDTH 13.6 % (11.6-16.5)
[2024-11-15 05:39] LABS: ALBUMIN 2.2 g/dL (3.4-5.0); CALCIUM 8.9 mg/dL (8.5-10.1); CARBON DIOXIDE 23.6 mmol/L (21-32); COR CA(FOR HYPOALB) 10.3 mg/dL (8.5-10.1); CREATININE 1.56 mg/dL (0.70-1.30); POTASSIUM 4.4 mmol/L (3.5-5.1); TOTAL PROTEIN 6.7 g/dL (6.4-8.2)
[2024-11-15 08:40] VITALS: PULSE 62; O2SAT 100
[2024-11-15 09:19] VITALS: BP 129/65; TEMP 98.7
[2024-11-15 09:45] VITALS: RESP 20
--- NOTE | 2024-11-15 12:16 | NOTE.SOAP ---
Soap Note Note for Day of Date of Exam: 11/15/24 Subjective Data Subjective Data: PD#2 from HWR, InD, Insert antibiotic device, right. Doing great no changes. Objective Data Objective Data: RLE Exam: Did not take dressing down. Doing well. No signs or symptoms concerning for DVT or PE. Assessment Assessment: 54 year old M with infection RLE. POD#2 HWR with InD and antibiotic placement Plan Plan: - NWB to RLE. - Culture showing GNR. DC with Cipro 500mg BID for 10 days. - Keep dressing intact. has instructions on changing it. - Can restart Metformin. - Can restart xeralto. - Pain Rx in chart. - Can follow-up with Dr. Stevens next week. - Okay for discharge.
[2024-11-16] MEDS ORDERED: PHARMACY COMMENT IV NR (20:00)
== END 2024-11-15 10:15 | disposition home health service (06) | DRG 464 ==
LOC: ER 17:50 → ICU 20:30 → INTOOBSV 20:30 → OBSVTOIN 20:30 → ICU 22:30
PROVIDERS: ADMIT Obstetrics & Gynecology Obstetrics; ATTEND Obstetrics & Gynecology Obstetrics
PROC: HARDREM (ICD-10-PCS; 2024-11-13 17:25)
DX: T84.84XA Pain due to internal orthopedic prosthetic devices, implants and grafts, initial encounter; Z16.11 Resistance to penicillins; B96.89 Other specified bacterial agents as the cause of diseases classified elsewhere; Z98.890 Other specified postprocedural states; Z16.12 Extended spectrum beta lactamase (ESBL) resistance; I10 Essential (primary) hypertension; T81.49XA Infection following a procedure, other surgical site, initial encounter; R74.8 Abnormal levels of other serum enzymes; E11.65 Type 2 diabetes mellitus with hyperglycemia; M19.071 Primary osteoarthritis, right ankle and foot; K21.9 Gastro-esophageal reflux disease without esophagitis; Z16.19 Resistance to other specified beta lactam antibiotics; R79.82 Elevated C-reactive protein (CRP); Z79.4 Long term (current) use of insulin; R70.0 Elevated erythrocyte sedimentation rate

== ENCOUNTER 2025-04-08 18:16 | Observation (INO) ==
--- NOTE | 2025-04-08 19:02 | DR.GENAD ---
HPI <Isak Castillo - Last Filed: 04/08/25 19:09> Time Seen Time Seen by Provider: 04/08/25 19:01 PCP Primary Care Physician: Salima Peter Complaint/Symptoms Chief Complaint Doctors Comments: Patient had recent foot surgery with Dr. Stevens and has been having some issues and they were concerned about possible infection versus vascular issues. They requested we do a CTA of the lower extremity on the right side and get some blood work and possible admission. Patient has also had low blood pressure on several occasions since the surgery. Chief Complaint:: states that patient was sent to the ER by Dr. Stevens possible foot infection and low BP. pt denies pain at this time COVID-19 Coronavirus risk:travel/contact w/high risk person: No Has patient experienced Coronavirus symptoms: No Source History Provided: Patient and Significant Other Mode of Arrival Mode of Arrival: Wheelchair Timing Onset of Chief Complaint: 04/08/25 PMH <Isak Castillo - Last Filed: 04/08/25 19:09> PMH Past Medical History: Yes Past Medical History: Coronary Artery Disease, Diabetes, Dyslipidemia, Migraines, GERD and Hypertension Past Surgical History: Yes Surgical History: Angioplasty/Stents, CABG/Valve Surgery and Ortho Surgery Past Surgical History Comment: 3 bypass, right toe amputations, mulitple right foot surgeries, and 3 vascular surgeries per leg. Family History History of Family Medical Conditions: Yes Family Medical History: Diabetes Mellitus, Cancer, [place], Coronary Artery Disease, Heart Failure and Hypertension Social History Type of Tobacco Use: None Alcohol Use: None Do you use any recreational Drugs:: No Lives With: Spouse Lives Where: Home Travel Risk Coronavirus risk:travel/contact w/high risk person: No Has patient experienced Coronavirus symptoms: No Infectious screening Have you traveled outside the country in the last 6 months?: No Isolation: Standard ROS <Isak Castillo - Last Filed: 04/08/25 19:09> Review of Systems Constitutional: No Symptoms Reported Eyes: No Symptoms Reported ENTM: No Symptoms Reported Respiratoy: No Symptoms Reported Cardiovascular: See HPI; negative Chest Pain, Edema, Palpitations or Syncope Gastrointestinal/Abdominal: No Symptoms Reported Genitourinary: No Symptoms Reported Neurological: No Symptoms Reported Musculoskeletal: See HPI Integumentary: No Symptoms Reported Hematologic/Lymphatic: No Symptoms Reported Endocrine: No Symptoms Reported Psychiatric: No Symptoms Reported All Other Systems: Reviewed and Negative PE <Isak Castillo - Last Filed: 04/08/25 19:09> Vital Signs Vitals: Vital Signs Temperature 98.0 F Pulse Rate 82 Pulse Rate 79 Pulse Rate 80 Pulse Rate 83 Pulse Rate 84 Pulse Rate 79 Pulse Rate 85 Pulse Rate 85 Pulse Rate 75 Pulse Rate 75 Pulse Rate 75 Pulse Rate 77 Pulse Rate 77 Pulse Rate 77 Pulse Rate 77 Pulse Rate 77 Pulse Rate 77 Pulse Rate 80 Pulse Rate 81 Pulse Rate 85 Respiratory Rate 20 Blood Pressure 129/62 Blood Pressure 142/74 Blood Pressure 132/62 Blood Pressure 132/62 Blood Pressure 132/62 Blood Pressure 113/81 Blood Pressure 120/66 Blood Pressure 119/71 Blood Pressure 106/65 Blood Pressure 112/64 Blood Pressure 112/64 Blood Pressure 109/63 Blood Pressure 105/59 O2 Sat by Pulse Oximetry 98 O2 Sat by Pulse Oximetry 97 O2 Sat by Pulse Oximetry 99 O2 Sat by Pulse Oximetry 99 O2 Sat by Pulse Oximetry 98 O2 Sat by Pulse Oximetry 99 O2 Sat by Pulse Oximetry 93 O2 Sat by Pulse Oximetry 97 O2 Sat by Pulse Oximetry 97 O2 Sat by Pulse Oximetry 97 O2 Sat by Pulse Oximetry 99 O2 Sat by Pulse Oximetry 94 O2 Sat by Pulse Oximetry 96 O2 Sat by Pulse Oximetry 99 O2 Sat by Pulse Oximetry 97 O2 Sat by Pulse Oximetry 96 O2 Sat by Pulse Oximetry 99 O2 Sat by Pulse Oximetry 99 O2 Sat by Pulse Oximetry 100 O2 Sat by Pulse Oximetry 95 <Jing Moseley - Last Filed: 04/09/25 01:29> Vital Signs Vitals: Vital Signs Temperature 98.0 F Pulse Rate 82 Pulse Rate 79 Pulse Rate 80 Pulse Rate 83 Pulse Rate 84 Pulse Rate 79 Pulse Rate 85 Pulse Rate 85 Pulse Rate 75 Pulse Rate 75 Pulse Rate 75 Pulse Rate 77 Pulse Rate 77 Pulse Rate 77 Pulse Rate 77 Pulse Rate 77 Pulse Rate 77 Pulse Rate 80 Pulse Rate 81 Pulse Rate 85 Respiratory Rate 20 Blood Pressure 129/62 Blood Pressure 142/74 Blood Pressure 132/62 Blood Pressure 132/62 Blood Pressure 132/62 Blood Pressure 113/81 Blood Pressure 120/66 Blood Pressure 119/71 Blood Pressure 106/65 Blood Pressure 112/64 Blood Pressure 112/64 Blood Pressure 109/63 Blood Pressure 105/59 O2 Sat by Pulse Oximetry 98 O2 Sat by Pulse Oximetry 97 O2 Sat by Pulse Oximetry 99 O2 Sat by Pulse Oximetry 99 O2 Sat by Pulse Oximetry 98 O2 Sat by Pulse Oximetry 99 O2 Sat by Pulse Oximetry 93 O2 Sat by Pulse Oximetry 97 O2 Sat by Pulse Oximetry 97 O2 Sat by Pulse Oximetry 97 O2 Sat by Pulse Oximetry 99 O2 Sat by Pulse Oximetry 94 O2 Sat by Pulse Oximetry 96 O2 Sat by Pulse Oximetry 99 O2 Sat by Pulse Oximetry 97 O2 Sat by Pulse Oximetry 96 O2 Sat by Pulse Oximetry 99 O2 Sat by Pulse Oximetry 99 O2 Sat by Pulse Oximetry 100 O2 Sat by Pulse Oximetry 95 ROR <Jerobetsy Castillo - Last Filed: 04/08/25 19:09> Labs Reviewed 04/08/25 19:00 04/08/25 19:00 Laboratory: WBC 10.6 X10^3/uL (3.6-10.0) H 04/08/25 19:00 RBC 4.20 X10^6/uL (4.7-6.0) L 04/08/25 19:00 Hgb 12.5 g/dL (13.5-18.0) L 04/08/25 19:00 Hct 37.0 % (42.0-54.0) L 04/08/25 19:00 MCV 88.0 fL (80.0-100.0) 04/08/25 19:00 MCH 29.7 pg (27.0-34.0) 04/08/25 19:00 MCHC 33.8 g/dL (33.0-35.0) 04/08/25 19:00 RDW 15.9 % (11.6-16.5) 04/08/25 19:00 Plt Count 399 X10^3/uL (150.0-450.0) 04/08/25 19:00 MPV 6.6 fL (7.4-11.0) L 04/08/25 19:00 Neut % (Auto) 73.9 % (42.0-75.0) 04/08/25 19:00 Lymph % (Auto) 10.2 % (21.0-51.0) L 04/08/25 19:00 Tyrrell % (Auto) 11.4 % (0.0-13.0) 04/08/25 19:00 Eos % (Auto) 3.9 % (0.9-2.9) H 04/08/25 19:00 Baso % (Auto) 0.6 % (0.2-1.0) 04/08/25 19:00 Neut # (Auto) 7.8 x10^3/uL (2.2-4.8) H 04/08/25 19:00 Lymph # (Auto) 1.1 X10^3/uL (1.3-2.9) L 04/08/25 19:00 Tyrrell # (Auto) 1.2 x10^3/uL (0.3-0.8) H 04/08/25 19:00 Eos # (Auto) 0.4 x10^3/uL (0.0-0.2) H 04/08/25 19:00 Baso # (Auto) 0.1 X10^3/uL (0.0-0.1) 04/08/25 19:00 Absolute Nucleated RBC 0.1 /100WBC 04/08/25 19:00 Sodium 136 mmol/L (136-145) 04/08/25 19:00 Corrected Sodium 138 mmol/L (136-145) 04/08/25 19:00 Potassium 4.3 mmol/L (3.5-5.1) 04/08/25 19:00 Chloride 99 mmol/L (98-107) 04/08/25 19:00 Carbon Dioxide 28.4 mmol/L (21-32) 04/08/25 19:00 BUN 19 mg/dL (7-18) H 04/08/25 19:00 Creatinine 1.62 mg/dL (0.70-1.30) H 04/08/25 19:00 Est GFR (MDRD) Af Amer 57 (>60) L 04/08/25 19:00 Est GFR (MDRD) Non-Af 47 (>60) L 04/08/25 19:00 Glucose 179 mg/dL (65-99) H 04/08/25 19:00 Lactic Acid 1.8 mmol/L (0.4-2.0) 04/08/25 21:05 Calcium 9.2 mg/dL (8.5-10.1) 04/08/25 19:00 Corrected Calcium 10.2 mg/dL (8.5-10.1) H 04/08/25 19:00 Total Bilirubin 0.60 mg/dL (0.2-1.0) 04/08/25 19:00 AST 21 Units/L (15-37) 04/08/25 19:00 ALT 21 Units/L (12-78) 04/08/25 19:00 Alkaline Phosphatase 126 Units/L (46-116) H 04/08/25 19:00 Total Protein 8.4 g/dL (6.4-8.2) H 04/08/25 19:00 Albumin 2.8 g/dL (3.4-5.0) L 04/08/25 19:00 Globulin 5.6 g/dL (2.5-4.5) H 04/08/25 19:00 Albumin/Globulin Ratio 0.5 Ratio (1.1-2.1) L 04/08/25 19:00 <Jing Moseley - Last Filed: 04/09/25 01:29> Labs Reviewed Laboratory Results Reviewed?: Yes Laboratory: WBC 10.6 X10^3/uL (3.6-10.0) H 04/08/25 19:00 RBC 4.20 X10^6/uL (4.7-6.0) L 04/08/25 19:00 Hgb 12.5 g/dL (13.5-18.0) L 04/08/25 19:00 Hct 37.0 % (42.0-54.0) L 04/08/25 19:00 MCV 88.0 fL (80.0-100.0) 04/08/25 19:00 MCH 29.7 pg (27.0-34.0) 04/08/25 19:00 MCHC 33.8 g/dL (33.0-35.0) 04/08/25 19:00 RDW 15.9 % (11.6-16.5) 04/08/25 19:00 Plt Count 399 X10^3/uL (150.0-450.0) 04/08/25 19:00 MPV 6.6 fL (7.4-11.0) L 04/08/25 19:00 Neut % (Auto) 73.9 % (42.0-75.0) 04/08/25 19:00 Lymph % (Auto) 10.2 % (21.0-51.0) L 04/08/25 19:00 Tyrrell % (Auto) 11.4 % (0.0-13.0) 04/08/25 19:00 Eos % (Auto) 3.9 % (0.9-2.9) H 04/08/25 19:00 Baso % (Auto) 0.6 % (0.2-1.0) 04/08/25 19:00 Neut # (Auto) 7.8 x10^3/uL (2.2-4.8) H 04/08/25 19:00 Lymph # (Auto) 1.1 X10^3/uL (1.3-2.9) L 04/08/25 19:00 Tyrrell # (Auto) 1.2 x10^3/uL (0.3-0.8) H 04/08/25 19:00 Eos # (Auto) 0.4 x10^3/uL (0.0-0.2) H 04/08/25 19:00 Baso # (Auto) 0.1 X10^3/uL (0.0-0.1) 04/08/25 19:00 Absolute Nucleated RBC 0.1 /100WBC 04/08/25 19:00 Sodium 136 mmol/L (136-145) 04/08/25 19:00 Corrected Sodium 138 mmol/L (136-145) 04/08/25 19:00 Potassium 4.3 mmol/L (3.5-5.1) 04/08/25 19:00 Chloride 99 mmol/L (98-107) 04/08/25 19:00 Carbon Dioxide 28.4 mmol/L (21-32) 04/08/25 19:00 BUN 19 mg/dL (7-18) H 04/08/25 19:00 Creatinine 1.62 mg/dL (0.70-1.30) H 04/08/25 19:00 Est GFR (MDRD) Af Amer 57 (>60) L 04/08/25 19:00 Est GFR (MDRD) Non-Af 47 (>60) L 04/08/25 19:00 Glucose 179 mg/dL (65-99) H 04/08/25 19:00 Lactic Acid 1.8 mmol/L (0.4-2.0) 04/08/25 21:05 Calcium 9.2 mg/dL (8.5-10.1) 04/08/25 19:00 Corrected Calcium 10.2 mg/dL (8.5-10.1) H 04/08/25 19:00 Total Bilirubin 0.60 mg/dL (0.2-1.0) 04/08/25 19:00 AST 21 Units/L (15-37) 04/08/25 19:00 ALT 21 Units/L (12-78) 04/08/25 19:00 Alkaline Phosphatase 126 Units/L (46-116) H 04/08/25 19:00 Total Protein 8.4 g/dL (6.4-8.2) H 04/08/25 19:00 Albumin 2.8 g/dL (3.4-5.0) L 04/08/25 19:00 Globulin 5.6 g/dL (2.5-4.5) H 04/08/25 19:00 Albumin/Globulin Ratio 0.5 Ratio (1.1-2.1) L 04/08/25 19:00 Other Results Comments: 54 y/o with mild to mod pad per cta; s/p debridement to rt foot on the and will require abx and further eval/tx per Dr Stevens. Dr Hines reports speaking with Dr Kelby huynh who accepted admission for Dr Stevens who is aware of pt's presence. Results d/w pt and and they are good with admission. XRAY XRAY Interpreted by: Radiologist X-ray Results: cta: mild to mod atherosclerotic vascular disease involving the abd aorta and runoff to the rt and lt lower extremities. No critical stenosis or occlusion identified. No acute abd or pelvic pathology. If osteomyelitis is a concern clinically, MR of the rt foot/lower leg recommended for further evaluation. Opioid <Isak Castillo - Last Filed: 04/08/25 19:09> Opioid Risk Tool Age (John box if 16-45): No History of Preadolescent Sexual Abuse: No Total: 0 Total Score Risk Category: Low Risk Copyright: [facility] predicting aberrant behaviors <Jing Moseley - Last Filed: 04/09/25 01:29> Opioid Risk Tool Total: 0 Total Score Risk Category: Low Risk Discharge Plan Diagnosis Discharge Problem: Diabetic ulcer of left foot, PAD (peripheral artery disease) Discharge Plan Patient Disposition: 09 ADMITTED INPATIENT Condition: Stable
[2025-04-08 19:23] LABS: MEAN PLATELET VOLUME 6.6 fL (7.4-11.0); RED CELL DISTRIBUTION WIDTH 15.9 % (11.6-16.5)
[2025-04-08 19:28] LABS: COR CA(FOR HYPOALB) 10.2 mg/dL (8.5-10.1); COR NA(FOR HYPERGLY) 138.0 mmol/L (136-145); CREATININE 1.62 mg/dL (0.70-1.30); eGFR NON BLACK RACES 47.0 (>60)
[2025-04-08] MEDS ORDERED: NS 250 ML IV 25 ML IV PRN (19:38)
[2025-04-08] MEDS ORDERED: ZOSYN VIAL 3.375 GRAMS IV ONE (19:41)
[2025-04-08] MEDS ORDERED: NS 1,000 ML IV 1,000 ML ONE (19:41)
[2025-04-08] MEDS ORDERED: NS 100 ML IV 100 ML ONE (19:42)
[2025-04-08] MEDS: NS 1,000 ML IV 1,000 ML IV ONE (19:48)
[2025-04-08] MEDS: ZOSYN VIAL 3.375 GRAMS 3.375 G in NS 100 ML IV 100 ML IV ONE (19:48)
[2025-04-08] MEDS: MAXIPIME VIAL 1 GRAM 1 G in NS 50 ML IV 50 ML IV ONE (20:20)
--- NOTE | 2025-04-08 20:20 | MD.NOTE ---
Provider Note Note Note: Mr. Berrios was seen in office today for post operative visit #1 s/p Debridement of the wound to the level of the calcaneus, Injection of antibiotic cement, intramedullary, Antibiotic sparkler placement, right, Debridement of wound with graft application of the dorsal foot and Application of skin subst itute; Date of Surgery was 04/02/25. On arrival to the office, patients blood pressure was obtained and was 84/50, dressing was also removed and dusky changes with bruising were appreciated to the right foot. Sparkler had been removed the day prior from the medial site, drainage noted is consisted with antibiotic from cerament that was injected in surgery. Patient had also been the ED on Monday suffering from SOB and low blood pressure. A wound with dusky periwound edges appreciated to the lateral foot noted. - Patient is to be admitted for continued medical management - Patient should be started on IV cefepime as his intra-operative cultures were finalized and susceptible to this antibiotic - No acute podiatric surgery planned, patient can have diet this evening - Would like patient to receive fluids as his Creatinine levels are elevated, if levels decrease would like CTA to be performed as there are concerns for vascular blood flow to the right foot - Patients blood pressure to be managed by primary care - Further recommendations to follow Please contact with any questions! Dr. Zoey Story
[2025-04-08] MEDS: VANCOMYCIN IV *PREMIX 1 G/200 ML BAG 1 G/200 ML PIGGYBACK IV ONE (20:23)
[2025-04-09] MEDS ORDERED: ULTRAM PO PRN (01:14)
[2025-04-09] MEDS ORDERED: NovoLIN R (or HumuLIN R) SUBCUT PRN (01:14)
[2025-04-09] MEDS ORDERED: NORCO 5/325 MG TAB PO PRN (01:14)
[2025-04-09] MEDS ORDERED: ZOFRAN INJ 4 MG VIAL IVP PRN (01:14)
[2025-04-09] MEDS ORDERED: MORPHINE SULFATE INJ 2 MG INJ IVP PRN (01:14)
[2025-04-09] MEDS: NS 1,000 ML IV 1,000 ML IV SCH (01:50)
[2025-04-09] MEDS ORDERED: CONSULT PHARMACY - ANTIBIOTIC XX SCH (02:00)
[2025-04-09] MEDS ORDERED: MAXIPIME VIAL 1 GRAM 1 G in NS 50 ML IV 50 ML IV SCH (02:00)
[2025-04-09] MEDS ORDERED: CONSULT PHARMACY - POTASSIUM & MAGNESIUM XX SCH (02:00)
[2025-04-09 02:56] VITALS: BMI 30.7
[2025-04-09 05:26] LABS: MEAN PLATELET VOLUME 6.8 fL (7.4-11.0); RED CELL DISTRIBUTION WIDTH 15.5 % (11.6-16.5)
[2025-04-09 05:40] LABS: COR CA(FOR HYPOALB) 10.2 mg/dL (8.5-10.1); CREATININE 1.45 mg/dL (0.70-1.30); eGFR NON BLACK RACES 54 (>60)
[2025-04-09] MEDS: MAXIPIME VIAL 1 GRAM 1 G in NS 50 ML IV 50 ML IV SCH (07:37)
[2025-04-09] MEDS ORDERED: PERCOCET TAB 5/325 MG PO PRN (08:34)
[2025-04-09] MEDS: PLAVIX PO SCH (08:49)
[2025-04-09] MEDS: FARXIGA PO SCH (08:49)
[2025-04-09] MEDS: ACTOS PO SCH (08:50)
[2025-04-09] MEDS: CRESTOR TAB 10 MG PO SCH (08:50)
[2025-04-09] MEDS: PROTONIX TAB 40 MG PO SCH (08:51)
[2025-04-09] MEDS: XARELTO PO SCH (08:51)
[2025-04-09] MEDS: NEURONTIN CAP 100 MG PO SCH (08:51)
[2025-04-09] MEDS: TOPROL XL PO SCH (08:52)
[2025-04-09] MEDS: GLUCOPHAGE ONE (08:54)
[2025-04-09] MEDS ORDERED: GLUCOPHAGE PO SCH (09:00)
[2025-04-09] MEDS ORDERED: TESSALON PERLES PO PRN (09:00)
[2025-04-09] MEDS ORDERED: AUGMENTIN 500 MG/125 MG TAB PO SCH (09:00)
[2025-04-09] MEDS: FLONASE NASAL SPRAY ENOSTRIL SCH (09:42)
[2025-04-09] MEDS: TESSALON PERLES PO PRN (09:42)
[2025-04-09] MEDS: BLOOD GLUCOSE SENSOR SC SCH (09:58)
[2025-04-09] MEDS: [UNRECOGNIZED DRUG - OTHER] SUBCUT SCH (09:59)
--- NOTE | 2025-04-09 16:35 | CT ---
EXAM: CT SINUS WITHOUT CONTRAST HISTORY: congestion ; . COMPARISON: None. TECHNIQUE: Axial CT images were obtained through the paranasal sinuses without contrast. Orthogonal reformations were post processed. All CT scans at this facility use dose modulation, iterative reconstruction, and/or weight based dosing when appropriate to reduce radiation dose to as low as reasonably achievable. FINDINGS: Paranasal sinuses and mastoid air cells are well-aerated. Bony tellez are intact. Minimal nasal septal deviation. Orbits and intraorbital structures appear normal. IMPRESSION: No evidence of paranasal sinus disease. The sinus drainage pathways remain patent. THIS IS AN ELECTRONICALLY VERIFIED FINAL REPORT 04/09/2025 4:32 PM - Electronically signed by Odin Wiggins MD
[2025-04-09] MEDS: SNACK - Diabetic Appropriate PO SCH (20:31)
[2025-04-10 04:55] LABS: MEAN PLATELET VOLUME 6.7 fL (7.4-11.0); RED CELL DISTRIBUTION WIDTH 15.6 % (11.6-16.5)
[2025-04-10 05:01] LABS: COR CA(FOR HYPOALB) 9.9 mg/dL (8.5-10.1); COR NA(FOR HYPERGLY) 142 mmol/L (136-145); CREATININE 1.17 mg/dL (0.70-1.30); eGFR NON BLACK RACES > 60 (>60)
--- NOTE | 2025-04-10 09:14 | NOTE.SOAP ---
Soap Note Note for Day of Date of Exam: 04/09/25 Subjective Data Subjective Data: Patient was seen and examined at bedside. Patient was sent in from the office yesterday for concern to his right foot as he was having vascular changes and blistering to the dorsum of his foot. Patient also was suffering from low blood pressure which is noted to be improved today. Patient states his appetite has also improved today. Objective Data Objective Data: Dressing was removed to the right foot, the gangrenous changes noted yesterday are drying out and the open wound noted in the office to the lateral aspect of the foot is filling in today. Small blisters are noted on the dorsal foot that are curently intact. No malodor is noted to the foot. Bruising is still noted to the medial aspect of the foot, swelling has improved and erythema and warmth is improved today. The foot is not currently cold to the touch. Assessment Assessment: 1. Chronic multifocal osteomyelitis, right foot 2. Essential hypertension, currently hypotensive on admission 3. Type 2 diabetes mellitus with diabetic polyneuropathy Plan Plan: - Would recommend ID consult as patients cultures show no oral option, currently on IV Cefepime - CTA performed at [facility]- results do not indicate significant blockages that require vascular intervention at this moment - Will continue to remain in house, will examine site again tomorrow - No podiatric surgery planned at this time - Patient is to be NWB to the RLE Please contact with any questions! Dr. Zoey Story
[2025-04-10] MEDS: TOPROL XL PO SCH (09:16)
--- NOTE | 2025-04-10 09:20 | NOTE.SOAP ---
Soap Note Note for Day of Date of Exam: 04/10/25 Subjective Data Subjective Data: Patient was seen and examined at bedside. Patient states he is feeling better every day. He denies any pain to his right foot today. Patient denies any calf pain and no shortness of breath today. Objective Data Objective Data: Dressing to right foot removed, right foot is stable today with no worsening symptoms. Blisters are still intact, dry ischemic changes appreciated to the medial dorsal and lateral feet. The graft on the dorsal foot appears black still. No drainage noted from the opening noted from sparkler removal previously done outpatient. No increased warmth, no swelling noted to the right foot or ankle. No calf tenderness noted. Patient is able to move all digits and CFT < 3 sec to all digits of the right foot. Assessment Assessment: 1. Chronic multifocal osteomyelitis, right foot 2. Essential hypertension, currently hypotensive on admission 3. Type 2 diabetes mellitus with diabetic polyneuropathy Plan Plan: - ID consult placed, pending their recommendations as patients cultures show no oral option, currently on IV Cefepime - CTA performed at [facility]- results do not indicate significant blockages that require vascular intervention at this moment - Will continue to remain in house pending ID recommendations - No podiatric surgery planned at this time - Patient is to be NWB to the RLE Please contact with any questions! Dr. Zoey Story
[2025-04-11 06:05] LABS: MEAN PLATELET VOLUME 6.4 fL (7.4-11.0); RED CELL DISTRIBUTION WIDTH 15.8 % (11.6-16.5)
[2025-04-11 06:20] LABS: COR CA(FOR HYPOALB) 9.9 mg/dL (8.5-10.1); CREATININE 1.02 mg/dL (0.70-1.30); eGFR NON BLACK RACES > 60 (>60)
[2025-04-11] MEDS ORDERED: CONSULT PHARMACY - POTASSIUM & MAGNESIUM XX SCH (07:00)
[2025-04-11] MEDS: K-DUR TAB 20 MEQ PO SCH (08:24)
--- NOTE | 2025-04-11 08:48 | NOTE.SOAP ---
Soap Note Note for Day of Date of Exam: 04/11/25 Subjective Data Subjective Data: Patient was seen and examined at bedside. Patien states his pain is well controlled today and is having more of an appetite. Patient denies any acute events overnight and did discuss that he spoke with infectious disease over the phone yesterday. Objective Data Objective Data: Dressing to right foot was removed. Foot appears to be improving today, with decrease swelling and redness appreciated. No tenderness to palpation noted to the ankle or surgical sites. No drainage noted. Dry ischemic changes appreciated to the lateral border of the right foot. Dark and black discoloration still appreciated to the graft site over the medial dorsal foot. Duskiness changes appear to be improving to the right foot. No bogginess or fluctuance appreciated to either site. No blisters present today. Assessment Assessment: 1. Charcot, right foot 2. Hypertension, admitted with hypotension 3. Chronic osteomyelitis Plan Plan: - Spoke with patient about infectious disease consult, appears that MRI was ordered. Likely will show enhancement due to recent debridement and fragmentation secondarily to Charcot as well as previous osteotomy and reduction - IV cefepime was recommended to the patient - patient should be discharged with PICC line and 6 weeks of IV cefepime outpatient - Script for labs to be drawn weekly including ESR, CRP, CBC and BMP was placed in the patients chart. This should be sent to Dr. Stevens for evaluation - Home Health care script for IV antibiotics and daily dressing changes also placed in patients chart - Patient is to be NWB to the right foot - Patient is to follow up outpatient with Dr. Stevens Please contact with any questions! Dr. Zoey Story
[2025-04-11] MEDS: TYLENOL 325 MG TAB PO PRN (11:42)
[2025-04-11] MEDS: MULTIHANCE INJ VIAL ONE (17:38)
--- NOTE | 2025-04-11 20:38 | RAD ---
EXAM: CHEST, 1 VIEW HISTORY: PICC line placement; COMPARISON: 04/05/2025 FINDINGS: The trachea is midline. Left PICC line tip in distal SVC. The cardiac silhouette is unremarkable. Mediastinal clips and sternotomy wires present. The lungs are clear without focal infiltrate or effusion. The bony thorax is unremarkable. IMPRESSION: No acute cardiopulmonary disease. THIS IS AN ELECTRONICALLY VERIFIED FINAL REPORT 04/11/2025 8:35 PM - Electronically signed by Suhas Sharma MD
[2025-04-12 06:11] LABS: RED CELL DISTRIBUTION WIDTH 15.6 % (11.6-16.5)
[2025-04-12 06:20] LABS: MEAN PLATELET VOLUME 6.5 fL (7.4-11.0)
[2025-04-12 06:29] LABS: COR CA(FOR HYPOALB) 9.5 mg/dL (8.5-10.1); CREATININE 1.02 mg/dL (0.70-1.30); eGFR NON BLACK RACES > 60 (>60)
[2025-04-12 07:07] LABS: BASOPHILS % (MANUAL) 1 % (0-1)
[2025-04-12 07:09] LABS: PLATELET MORPHOLOGY COMMENT NORMAL (NORMAL)
[2025-04-12] MEDS: MICARDIS PO SCH (10:49)
[2025-04-12] MEDS: COLACE CAP 100 MG PO PRN (20:10)
[2025-04-13 05:43] LABS: MEAN PLATELET VOLUME 6.3 fL (7.4-11.0); RED CELL DISTRIBUTION WIDTH 15.5 % (11.6-16.5)
[2025-04-13 05:53] LABS: COR CA(FOR HYPOALB) 9.5 mg/dL (8.5-10.1); CREATININE 1.03 mg/dL (0.70-1.30); eGFR NON BLACK RACES > 60 (>60)
[2025-04-13 05:59] LABS: METAMYELOCYTES % 4
[2025-04-13 06:00] LABS: PLATELET MORPHOLOGY COMMENT NORMAL (NORMAL)
[2025-04-13] MEDS ORDERED: CONSULT PHARMACY - POTASSIUM & MAGNESIUM XX SCH (07:00)
[2025-04-13] MEDS: K-DUR TAB 20 MEQ PO SCH (08:29)
--- NOTE | 2025-04-13 09:45 | RAD ---
EXAM: FOOT, RIGHT HISTORY: pain, swelling, sp surgery; pt states he had right foot surgery in September 2024. pt states he has had infection in his foot since. COMPARISON: 04/11/2025 FINDINGS: No acute fracture or dislocation. Prior 2nd digit amputation. Chronic appearing deformity of the 3rd proximal phalanx. Edema in the foot. Scattered vascular calcifications. Surgical hardware overlying the 1st and 2nd metatarsals and the talus. Hindfoot arthrodesis screw. IMPRESSION: Edema in the foot without radiographic evidence of osteomyelitis. THIS IS AN ELECTRONICALLY VERIFIED FINAL REPORT 04/13/2025 9:42 AM - Electronically signed by Kamar Hendricks MD
--- NOTE | 2025-04-13 09:53 | MRI ---
EXAM: EXT LOWER NON-JOINT W&W/O CON HISTORY: OSTEO-ULCER RIGHT FOOT; COMPARISON: Plain films 04/13/2025 TECHNIQUE: Multiplanar, multisequence MRI of the right foot obtained without and with IV contrast. FINDINGS: Prior 2nd digit amputation. Susceptibility artifact from arthrodesis screws in the hindfoot and involving the 1st and 2nd metatarsals. Edema throughout the foot, worst in the medial midfoot. Chronic appearing changes throughout the midfoot. Dorsal skin defect with underlying edema and possible peripherally enhancing fluid collection measuring at least 1.0 x 0.7 x 0.7 cm (AP, transverse, cc) deep to the skin defect. This is not included on axial field of view and surrounding marrow signal is difficult to evaluate. Infectious involvement of the dorsal midfoot is difficult to exclude on this exam. IMPRESSION: Skin defect in the dorsal midfoot with underlying edema and likely abscess measuring at least 1.0 x 0.7 x 0.7 cm. Infectious involvement of the medial midfoot is difficult to exclude on this exam due to technical limitations and susceptibility artifact from hardware. Routine exam without and with IV contrast evaluated by musculoskeletal radiologist may be more helpful. THIS IS AN ELECTRONICALLY VERIFIED FINAL REPORT 04/13/2025 9:50 AM - Electronically signed by Kamar Hendricks MD
--- NOTE | 2025-04-13 12:12 | NOTE.SOAP ---
Soap Note Note for Day of Date of Exam: 04/12/25 Subjective Data Subjective Data: Patient was seen and examined at bedside. Patients family and friends were noted at bedside. Patient stated he was feeling much better and was in no significant pain. He was noted to have PICC line today to the left arm. Patient denies any fevers, shortness of breath or calf pain at this time. Objective Data Objective Data: Dressing was intact to the right foot. Assessment Assessment: 1. Charcot 2. Hypertension, hypotension on admission 3. History of chronic osteomyelitis, right foot Plan Plan: Discussed long term care pharmacist antibiotics with patient, will be discharged with Cefepime 2g IV q8h for 6 weeks Script is in patients chart for antibiotic Script for daily dressing changes also requested for the right foot Patient is NWB to the right foot Did review Infectious disease notes and noted they will be performing MRI, will likely see changes related to the bone secondarily to recent surgical intervention to the foot as well as Charcot Patient can be discharged from our standpoint once obtained authorization for antibiotic outpatient through PICC line Patient will follow up outpatient with Dr. Stevens Please contact with any questions! Dr. Zoey Story
--- NOTE | 2025-04-13 12:17 | MD.NOTE ---
Provider Note Note Note: Did review MRI report ordered by Infectious Disease, the abscess noted is likely due to the Cerament G injected to the noted space in recent surgical intervention consistent with fluid accumulation. Wound is chronic in nature. No podiatric surgical intervention required at this time Patient okay to be discharged home from podiatric standpoint once IV cefepime authorized and arranged outpatient Patient will need daily dressing changes of betadine, dry sterile dressing to the right foot Patient will follow up outpatient with Dr. Stevens This was discussed yesterday at bedside with patient and his . They will likely need to perform the dressing changes and most of his IV injections, patie nts has done it before and is comfortable performing this again Patient will continue to be NWB Patient states he has pain medication at home and does not require a refill at this time Script for IV Cefepime, dressing changes and weekly lab draws are in the patients chart for discharge. Please contact with any questions! Thank you Dr. Zoey Story
[2025-04-13] MEDS: MICARDIS PO SCH (12:20)
[2025-04-13] MEDS: NEURONTIN CAP 100 MG PO SCH (14:24)
[2025-04-14 04:23] VITALS: O2SAT 97
[2025-04-14 05:38] LABS: MEAN PLATELET VOLUME 6.3 fL (7.4-11.0); RED CELL DISTRIBUTION WIDTH 15.7 % (11.6-16.5)
[2025-04-14 05:51] LABS: COR CA(FOR HYPOALB) 9.6 mg/dL (8.5-10.1); CREATININE 0.92 mg/dL (0.70-1.30); eGFR NON BLACK RACES > 60 (>60)
[2025-04-14 06:18] LABS: PLATELET MORPHOLOGY COMMENT NORMAL (NORMAL)
--- NOTE | 2025-04-14 08:11 | DR.UPDATE ---
H&P Update Prescription drug monitoring program results: PDMP was not reviewed H&P Reviewed: Yes Any changes to H&P?: No Patient was examined?: Yes Vital Signs: Temp Pulse Resp BP BP Pulse Ox O2 Del Method 04/14/25 04:29 146/72 04/14/25 04:00 98 F 73 18 181/80 97 Room Air 04/14/25 00:06 158/76 04/14/25 00:00 98 F 66 20 178/81 99 Room Air 04/13/25 21:41 154/66 04/13/25 21:29 18 04/13/25 20:44 172/80 04/13/25 20:29 18 04/13/25 20:00 97.8 F 68 18 183/84 100 Room Air 04/13/25 19:00 Room Air 04/13/25 15:20 97.4 F L 63 18 169/78 94 L 04/13/25 11:40 97 F L 63 18 162/70 99 04/13/25 09:29 18 04/13/25 08:41 Room Air 04/13/25 08:29 18 04/13/25 08:00 97 F L 73 18 156/80 95 04/13/25 04:19 152/78 04/13/25 04:00 97.9 F 70 20 171/81 97 Room Air 04/13/25 00:08 154/80 04/13/25 00:00 97.7 F 63 20 164/77 98 Room Air 04/12/25 21:40 150/70 04/12/25 21:11 20 04/12/25 20:11 18 04/12/25 20:00 97.7 F 72 20 160/72 100 Room Air 04/12/25 20:00 97.7 F 72 20 160/72 100 Room Air 04/12/25 19:00 Room Air 04/12/25 16:00 97.7 F 77 19 145/70 100 Room Air 04/12/25 12:21 150/70 04/12/25 11:58 98.1 F 76 19 160/77 100 Room Air 04/12/25 09:24 Room Air 04/12/25 08:00 97.8 F 73 19 150/70 100 Room Air 04/12/25 04:00 97.7 F 67 19 153/69 96 04/12/25 00:38 20 09/20/25 00:00 97.9 F 71 19 144/70 97 Room Air 04/11/25 23:38 20 04/11/25 20:00 97.8 F 74 20 155/73 99 Room Air 04/11/25 19:00 Room Air 04/11/25 16:00 97.8 F 75 20 172/74 98 Room Air 04/11/25 12:42 18 04/11/25 12:00 97.8 F 72 18 158/73 99 Room Air 04/11/25 11:42 18 Procedures (ALL) - Central Line Placement PCM.CLCO: written consent Time out performed: Yes Patient placed pm monitor/pulse ox: Yes MD prep: mask, gown, gloves, other Centrial line prep: chlorhexidine scrub, sterile drapes applied Local anesthsia used: lidocane 1% Ultrasound used for placement: Yes (left basilic v id'd and cannulation vis) Central line lumen ininserted: double (5.5fr arrowgard, 55cm cath with 3cm exposed) Post procedure: good blood return, all ports aspirated, flushed,capped, sterile dressing applied Post procedure xray: tip oc catheter in good position (distal svc per [facility] radiology report), no pneumothorax seen Patient tolerated procedure: Yes Complications: none
[2025-04-14 08:51] VITALS: PULSE 78; RESP 20; TEMP 97.4
[2025-04-14 09:38] VITALS: BP 178/85
--- NOTE | 2025-04-14 09:38 | NOTE.SOAP ---
Soap Note Note for Day of Date of Exam: 04/14/25 Subjective Data Subjective Data: Patient was seen and examined at bedside. Patient denies any acute events overnight. Patient denies any new pain and no shortness of breath, no chest pain, no calf tenderness at this time. Patient denies any fevers. Patient states his pain has been well controlled. Objective Data Objective Data: Dressing was removed and right foot was once again examined. To dorsal medial foot- the dry eschar present appears to have lifting present today to the lateral central border, granular tissue is appreciated deep to it. No periwound erythema is present. No purulence or drainage is noted. No fluctuance or bogginess noted to the remainder of the eschar. To lateral right foot, a dry eschar is still well adhered with no bogginess and no fluctuance noted. the surrounding periwound is warm to touch with no erythema noted. There is a deep tissue injury noted to the plantar aspect. It is so no longer dusky in appearance and appears dark and deep tissue in nature. The plantar heel continues to be stable with dry eschars present at this time. To the medial ankle, there is localized pain noted on palpation that patient states in improving. No erythema or edema present to surround ankle. To the lateral foot where the sparkler had been inserted and removed prior to admission, granular tissue is present. No active drainage noted today. No calf tenderness noted, no lymphangiitis present to the RLE. Assessment Assessment: 1. Charcot 2. Hypertension 3. History of OM Plan Plan: Patient okay to be discharged home from podiatric standpoint once IV cefepime authorized and arranged outpatient Patient will need daily dressing changes of betadine, dry sterile dressing to the right foot, may consider switching to santyl outpatient Patient will follow up outpatient with Dr. Stevens Patient will continue to be NW[facility], however we did discuss patient can use RLE for transferring Patient states he has pain medication at home and does not require a refill at this time Script for IV Cefepime, dressing changes and weekly lab draws are in the patients chart for discharge. Please contact with any questions! Dr. Zoey Story
[2025-04-14] MEDS: MICARDIS PO NR (10:01)
[2025-04-15] MEDS ORDERED: MICARDIS PO SCH (09:00)
== END 2025-04-14 11:40 | disposition home health service (06) ==
LOC: ER 18:16 → INTOOBSV 04-09 01:10 → MED/SURG 04-09 01:10
PROVIDERS: ADMIT Obstetrics & Gynecology Obstetrics; ATTEND Obstetrics & Gynecology Obstetrics
DX: M86.371 Chronic multifocal osteomyelitis, right ankle and foot; E11.65 Type 2 diabetes mellitus with hyperglycemia; Z79.4 Long term (current) use of insulin; R79.89 Other specified abnormal findings of blood chemistry; I10 Essential (primary) hypertension; I25.810 Atherosclerosis of coronary artery bypass graft(s) without angina pectoris; Z95.1 Presence of aortocoronary bypass graft; Z98.890 Other specified postprocedural states; E11.51 Type 2 diabetes mellitus with diabetic peripheral angiopathy without gangrene; F43.10 Post-traumatic stress disorder, unspecified; Z95.2 Presence of prosthetic heart valve; E78.5 Hyperlipidemia, unspecified; K21.9 Gastro-esophageal reflux disease without esophagitis; M86.171 Other acute osteomyelitis, right ankle and foot; E11.621 Type 2 diabetes mellitus with foot ulcer; I95.89 Other hypotension; E87.1 Hypo-osmolality and hyponatremia; G90.A Postural orthostatic tachycardia syndrome [POTS]